=== PATIENT | female | born 1980 | race Caucasian/White ===

== ENCOUNTER 2019-12-22 05:29 | Emergency (ER) | payer MEDICAID, SELFPAY ==
[2019-12-22 05:44] VITALS: BP 155/96; PULSE 112; RESP 16; TEMP 36.5; O2SAT 96; BMI 26.4
--- NOTE | 2019-12-22 05:52 | XR_ITS ---
WS: [id number] Right foot, 3 views, 12/22/2019 Clinical Data: right foot injury/pain Comparison: None. Findings: No fractures or dislocations are seen. No bone destruction or erosion is noted. The joint spaces and soft tissues are normal. XR/XR foot RT min 3V* [id number] Impression: Negative right foot.
--- NOTE | 2019-12-22 05:52 | XR_ITS ---
WS: [id number] Right ankle, 2 views, 12/22/2019 Clinical Data: right foot injury/pain Comparison: None. Findings: No fractures or dislocations are seen. The ankle mortise is normal. The talus and calcaneus are unrem arkable. No soft tissue swelling over the medial or lateral malleolus is seen. XR/XR ankle RT 2V [id number] Impression: Negative right ankle.
--- NOTE | 2019-12-22 06:36 | ED_ITS ---
HPI - Extremity Problem General: Chief complaint: Extremity Problem,Nontraumatic Stated complaint: right ankle pain Time Seen by Provider: 12/22/19 06:33 History of Present Illness: HPI Narrative: 39-year-old female complains of right ankle pain. She states that 2 months ago she twisted the ankle and is been uncomfortable since then she has been ambulating on it. She feels like it has gotten worse. She feels like she cannot work a full shift at her job at a [employer] and shifts her 10 hours usually. She has not seen anyone for it prior to this morning. MD Complaint: extremity pain and extremity swelling Onset (ago): month(s) (2) Pain Consistency: constant Location: right Associated symptoms: Deny chest pain, fever(s) or rash Review of Systems Const: Denies: fever, chills, body aches, change in appetite, fatigue or malaise ENMT: Denies: throat pain, ear pain, nasal discharge or nasal congestion Card: Denies: chest pain, edema, shortness of breath on exertion or shortness of breath when lying down Resp: Denies: shortness of breath, productive cough or non-productive cough GI: Denies: abdominal pain, nausea, vomiting, vomiting blood, coffee grounds in vomit, diarrhea, constipation, bloating, blood in stool or black tarry stool : Denies: flank pain, difficulty urinating, painful urination, urinary frequency or urinary urgency Skin/Breast: Denies: rash or itching PFSH ED PFSH: Social History Smoking and tobacco status: current every day smoker Physical Exam Const: COMMON NORMALS: no apparent distress GENERAL APPEARANCE: cooperative and comfortable ORIENTATION/CONSCIOUSNESS: Yes awake, Yes oriented to person, Yes oriented to place and Yes oriented to time Neck/C-Spine: COMMON NORMALS: full ROM, no lymphadenopathy, supple and no JVD Lymph: LYMPHATIC: no lymphadenopathy noted and no lymphedema noted Resp: COMMON NORMALS: normal respiratory effort, no retractions, no use of accessory muscles and clear to auscultation bilaterally AUSCULTATION: clear to auscultation bilaterally Cardio: COMMON NORMALS: no JVD, regular rate, regular rhythm and no murmurs RATE: regular rate RHYTHM: regular rhythm Extremity: COMMON NORMALS: normal to inspection, normal capillary refill, no clubbing, cyanosis or edema, no calf tenderness and no pedal edema Neuro: SENSORIUM/ORIENTATION: Yes oriented to person, Yes oriented to place and Yes oriented to time Skin: COMMON NORMALS: no rashes or lesions noted GENERAL SKIN EXAM: no rashes or lesions noted Course ED course: X-ray unremarkable. We will go ahead and discharge home follow-up with podiatry if not improving Vital Signs: Vital signs: Vital Signs Temperature 97.7 F 12/22/19 05:44 Pulse Rate 112 H 12/22/19 05:44 Respiratory Rate 16 12/22/19 05:44 Blood Pressure 155/96 12/22/19 05:44 Pulse Oximetry 96 12/22/19 05:44 Discharge Plan Discharge Patient Disposition: Home, Self-Care Clinical Impression: Chronic pain of right ankle Condition: Stable Prescriptions: New diclofenac sodium 75 mg tablet,delayed release (DR/EC) 75 mg PO Q12H PRN (Reason: pain) Qty: 30 RF: 0 Discharge Orders: Discharge Order (Routine); Ordered 12/22/19 Ordered By: Gurdeep Hernandez Referrals: Hank Mcclendon DPM [Physician] - (R Ankle pain, 2 month old injury) Discharge Diet: Usual diet Discharge Activity: Increase activity as tolerated Activity Restrictions/Additional Instructions: Case management will call with referral to podiatry Stand Alone Forms: Work/School Release Discharge Date/Time: 12/22/19 06:55 Coding Level of Care Code ED Director Of Assisted Living for Gallo Humphrey
--- NOTE | 2019-12-22 11:11 | DCPLANNER ---
manager actuarial had message to schedule a follow up appointment for patient with podiatry. manager actuarial called the ortho clinic, spoke with Glenys. manager actuarial gave clinic patients information, was told that patients information would be printed and reviewed. Clinic will call case therapist and patient with appointment information.
--- NOTE | 2019-12-27 13:23 | DCPLANNER ---
Patient has a follow up appointment scheduled for December at 11:[address] Grace. Clinic will call patient with appointment information.
--- NOTE | 2020-01-05 09:51 | DCPLANNER ---
Patient did not attend appointment scheduled for 12.29.19 with ortho.
== END 2019-12-22 06:55 | disposition home or self-care (01) ==
PROVIDERS: Emergency Provider Family Medicine
DX: M25.571 Pain in right ankle and joints of right foot (principal); G89.29 Other chronic pain; F17.200 Nicotine dependence, unspecified, uncomplicated
CPT/HCPCS: 73600; 73630; 99281; 99283

== ENCOUNTER → 2020-09-18 14:50 | Outpatient (BNVA) | payer MEDICAID, SELFPAY | PROVIDERS: Visit Provider Nurse Practitioner Family | DX: R10.9 Unspecified abdominal pain (principal); G89.29 Other chronic pain; N30.00 Acute cystitis without hematuria | CPT/HCPCS: 81000 ==

== ENCOUNTER → 2025-07-18 10:34 | Outpatient (BNVA) | payer BC, MEDICAID, SELFPAY | DX: R39.9 Unspecified symptoms and signs involving the genitourinary system (principal); R30.0 Dysuria | CPT/HCPCS: 81000; 87086 ==

== ENCOUNTER 2025-08-11 13:21 | Emergency (ER) | payer BC, MEDICAID, SELFPAY ==
[2025-08-11 13:31] VITALS: BP 139/81; PULSE 90; RESP 18; TEMP 36.7; O2SAT 100; BMI 24.9
--- OUTSIDE RECORDS SUMMARY | 2025-08-11 13:36 | XMS_ITS | Encounter Summary ---
Author Organization [facility] Address [address] [place] [address] Care Team Providers Care Travel Rn Name Role Phone Unavailable Primary Care Provider Unavailabl e Encounter Details Date Type Department Care Team (Latest Contact Info) Description 10/06/2002 Outpatient Historical [facility] Family Medicine [address] [place] [phone] Danielle Sun MD NO ADDRESS ON FILE FLU W RESP MANIFEST NEC (Primary Dx) Social History Tobacco Use Types Packs/Day Years Used Date Smoking Tobacco: Never Assessed Comments Unknown Sex and Gender Information Value Date Recorded Sex Assigned at Not on file 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
--- OUTSIDE RECORDS SUMMARY | 2025-08-11 13:36 | XMS_ITS | Patient Health Record ---
Author Organization [facility] Address [address] [place] [address] Care Team Providers Care Scrapper Name Role Phone Parrish Vazquez Unavailable [phone] Reason For Referral No Information Social History Social History Additional Details Category Social Info Options Details zzMigrated Social History Migrated Social History Advance Directive: Current and Verified Signed on 06/07/2012, withhold IV and tube nutrition, withhold surgery, withhold antibiotics, withhold mechanical ventilator, withhold radiation therapy, withhold dialysis, withhold chemotherapy, withhold CPR Other All other Life Prolonging ... 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 Marital Status: Single Children: 6 Problems Problem Type SNOMED Code ICD Code Onset Dates Problem Status W/U Status Risk Notes Problem Wheezing (68310835) Wheezing (786.07) 08/31/20 08 Problem resolved confirmed [id number]- Problem Rash (391218431) Rash (782.1) 06/07/20 12 Problem resolved confirmed [id number]- Problem Low back pain (348168124) Low back pain (724.2) 12/09/19 11 Active confirmed [id number]- Problem Moderate recurrent major depression (23734776) Major depression, recurrent episode, moderate (296.32) 10/23/20 10 Active confirmed [id number]- Problem Shoulder pain (42920052) Shoulder pain (719.41) 09/30/20 10 Problem resolved confirmed [id number]- Problem Tobacco dependence (18021204) Tobacco dependence (305.1) 05/17/20 19 Problem resolved confirmed [id number]- Problem Foot pain (56864983) Foot pain (729.5) 11/18/19 11 Problem resolved confirmed [id number]- Problem Breast pain (85500385) Breast pain (611.71) 11/30/19 09 Problem resolved confirmed [id number]- Problem Stress (959193919) Stress (300.02) 01/26/20 09 Problem resolved confirmed [id number]- Problem Chronic hepatitis C (699066930) Chronic hepatitis C (070.54) 09/29/20 08 Active confirmed [id number]- Problem Constipation (60149446) Constipation (564.01) 07/17/20 10 Problem resolved confirmed [id number]- Problem Knee pain (8609045137) Knee pain (719.46) 12/29/19 09 Problem resolved confirmed [id number] 11- Problem COPD - Chronic obstructive pulmonary disease (84470233) COPD (496) 07/17/20 10 Active confirmed [id number]- Problem Menstrual disorder (758701598) Disorder of menstruation and other abnormal uterine bleeding (626.8) 08/07/20 10 Problem resolved confirmed [id number]- Problem Screening mammography (07734289) Screening mammogram - other (V76.12) 05/17/20 19 Problem resolved confirmed [id number] 11- Plan Of Treatment No Information Insurance Providers Payer Name Payer Address Payer Phone Subscriber Number Group Number Insured Name Patient Relationship to Insured Coverage Start Date Coverage End Date [facility] [address] [address] [place] [address] [id number] Arue Soto Self - patient is the insured 9 Medical (General) History Surgical History Surgery Date(Month/Year) NONE
--- OUTSIDE RECORDS SUMMARY | 2025-08-11 13:36 | XMS_ITS | Encounter Summary ---
Author Organization [facility] Address [address] [place] [address] Care Team Providers Care Retort Furnace Helper Name Role Phone Unavailable Primary Care Provider Unavailabl e Encounter Details Date Type Department Care Team (Latest Contact Info) Description 02/07/2000 Outpatient Historical [facility] Family Medicine [place] [address] [facility] [address] [place] [address] Jassi Gonzales MD [address] [address] Myalgia and myositis, unspecified (Primary Dx); Hip, thigh, leg, and ankle, abrasion or friction burn, without mention of infection; Need for prophylactic vaccination with tetanus-diphtheria (Td) Social History Tobacco Use Types Packs/Day Years Used Date Smoking Tobacco: Never Assessed Comments Unknown Sex and Gender Information Value Date Recorded Sex Assigned at Not on file 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
--- OUTSIDE RECORDS SUMMARY | 2025-08-11 13:36 | XMS_ITS | Encounter Summary ---
Author Organization [facility] Address [address] [place] [address] Care Team Providers Care Recruiting Intern Name Role Phone Unavailable Primary Care Provider Unavailabl e Encounter Details Date Type Department Care Team (Latest Contact Info) Description 01/25/2005 Outpatient Historical [facility] [address] [place] [address] AMBULANCE, [facility] HEADACHE (Primary Dx) Social History Tobacco Use Types Packs/Day Years Used Date Smoking Tobacco: Never Assessed Comments Unknown Sex and Gender Information Value Date Recorded Sex Assigned at Not on file 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
--- OUTSIDE RECORDS SUMMARY | 2025-08-11 13:36 | XMS_ITS | Encounter Summary ---
Author Organization [facility] Address [address] 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
--- OUTSIDE RECORDS SUMMARY | 2025-08-11 13:36 | XMS_ITS | Encounter Summary ---
Author Organization [facility] Address [address] [place] [address] Care Team Providers Care Sales Mgr Name Role Phone Unavailable Primary Care Provider Unavailabl e Encounter Details Date Type Department Care Team (Latest Contact Info) Description 08/13/1999 Outpatient Historical [facility] Family Medicine [address] [address] Kiko Hastings, DO NO ADDRESS ON FILE Acute bronchitis (Primary Dx); Acute pharyngitis Social History Tobacco Use Types Packs/Day Years Used Date Smoking Tobacco: Never Assessed Comments Unknown Sex and Gender Information Value Date Recorded Sex Assigned at Not on file 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
--- OUTSIDE RECORDS SUMMARY | 2025-08-11 13:36 | XMS_ITS | Encounter Summary ---
Author Organization [facility] Address [address] [place] [address] Care Team Providers Care Volunteer Services Supervisor Name Role Phone Unavailable Primary Care Provider Unavailabl e Encounter Details Date Type Department Care Team (Latest Contact Info) Description 12/04/2006 Outpatient [facility] Medicine [address] [place] [phone] Juana Vazquez NP NO ADDRESS ON FILE Acute Hepatitis C without Mention of Hepatic Coma (Primary Dx); Acute Sinusitis, Unspecified Social History Tobacco Use Types Packs/Day Years Used Date Smoking Tobacco: Never Assessed Comments Unknown Sex and Gender Information Value Date Recorded Sex Assigned at Not on file 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
--- OUTSIDE RECORDS SUMMARY | 2025-08-11 13:36 | XMS_ITS | Encounter Summary ---
Author Organization [facility] Address [address] You: Epic Prelude ADT BHANU SAMSON [address] Care Team Providers Care Zigzag Machine Operator Name Role Phone Unavailable Primary Care Provider Unavailabl e Encounter Details Date Type Department Care Team (Late st Contact Info) Description 10/26/1999 Outpatient Historical Ed, Physician NO ADDRESS ON FILE Social History Tobacco Use Types Packs/Day Years Used Date Smoking Tobacco: Never Assessed Comments Unknown Sex and Gender Information Value Date Recorded Sex Assigned at Not on file Legal Sex Female 4:34 AM CONTACT MANAGER Gender Identity Not on file Sexual Orientation Not on file documented as of this encounter Plan of Treatment Not on file documented as of this encounter Visit Diagnoses Not on filedocumented in this encounter
--- OUTSIDE RECORDS SUMMARY | 2025-08-11 13:36 | XMS_ITS | Encounter Summary ---
Author Organization [facility] Address [address] [place] [address] Care Team Providers Care Environmental Auditor Name Role Phone Unavailable Primary Care Provider Unavailabl e Reason for Visit * Reason Onset Date Comments Pt Natan 12/22/2024 Encounter Details Date Type Department Care Team (Late st Contact Info) Description 12/22/2024 Telephone [facility] Gen Spec Surg [place] [facility] 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 Please call her back to update her with a plan. GRAPHICAL ENGINEER documented in this encounter Plan of Treatment Not on file documented as of this encounter Visit Diagnoses Not on filedocumented in this encounter
--- OUTSIDE RECORDS SUMMARY | 2025-08-11 13:36 | XMS_ITS | Encounter Summary ---
Author Organization [facility] Address [address] [place] [address] Care Team Providers Care Perinatal Breastfeeding Assistant Name Role Phone Unavailable Primary Care Provider Unavailabl e Encounter Details Date Type Department Care Team (Latest Contact Info) Description 09/01/2002 Outpatient Historical 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
--- OUTSIDE RECORDS SUMMARY | 2025-08-11 13:36 | XMS_ITS | Encounter Summary ---
Author Organization [facility] Address [address] 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 Gender Identity Not on file Sexual Orientation Not on file documented as of this encounter Plan of Treatment Not on file documented as of this encounter Procedures Procedure Name Priority Date/Time Associated Diagnosis Comments ACUTE HEPATITIS PANEL Routine 11/13/2006 12:14 PM STIFF STRAW HAT WASHER documented in this encounter Results * (ABNORMAL) ACUTE HEPATITIS PANEL (11/13/2006 12:14 PM STIFF STRAW HAT WASHER) HEPATITIS B SURFACE AG Negative Negative INTERFACE SYSTEM HEPATITIS B CORE IGM Negative Negative INTERFACE SYSTEM HEPATITIS A IGM Negative Negative INTE RFACE SYSTEM HEPATITIS C AB High Positive(A) Negative INTERFACE SYSTEM Comment: HCV antibody testing is performed by E.I.A. methodology. CDC recommends positive HCV antibody tests have confirmation testing. Low positive results should be confirmed with RIBA. This will determine if results are false positive. If a high positive result is obtained an HCV RNA may be run. The RNA test confirms infection and the level of the RNA, to some extent, helps guide treatment. The same specimen can be used for RIBA and will be held for 7 days. Please contact the Immunology lab if RIBA testing is desired. However, if HCV RNA testing is desired, a new specimen must be collected. Blood should be collected in SST (serum) or EDTA (plasma) separation tubes. Separate serum or plasma from whole blood within 6 hours of collection. Serum or plasma can be transported at refrigerated temperature or frozen and transported. 11/13/2006 12:1 4 PM STIFF STRAW HAT WASHER us Physician Non-Staff CHEMISTRY ORDERABLES Edited INTERFACE SYSTEM Refer to clinic/hospital department documented in this encounter Visit Diagnoses Not on filedocumented in this encounter
--- OUTSIDE RECORDS SUMMARY | 2025-08-11 13:36 | XMS_ITS | Encounter Summary ---
Author Organization [facility] Address [address] [place] [address] Care Team Providers Care Roofing Foreman Name Role Phone Unavailable Primary Care Provider Unavailabl e Encounter Details Date Type Department Care Team (Latest Contact Info) Description 11/20/2006 Outpatient [facility] Medicine [address] [place] [phone] Juana Vazquez NP NO ADDRESS ON FILE Acute Hepatitis C without Mention of Hepatic Coma (Primary Dx); Supervision of Other High-Risk Social History Tobacco Use Types Packs/Day Years Used Date Smoking Tobacco: Never Assessed Comments Unknown Sex and Gender Information Value Date Recorded Sex Assigned at Not on file 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
--- OUTSIDE RECORDS SUMMARY | 2025-08-11 13:36 | XMS_ITS | Clinical Summary ---
Author Organization [facility] Address [address] You: Epic Prelude ADT BHANU SAMSON [address] Care Team Providers Care Director Of [employer]ance [employer] Name Role Phone Unavailable Primary Care Provider Unavailabl e Allergies No known active allergies Medications acetaminophen (TYLENOL) 500 mg tablet Take 1,000 mg by mouth every 6 hours as needed for Pain. 09/05/2020 Active gabapentin (NEURONTIN) 600 mg tablet Take 600 mg by mouth 3 times daily. Active Active Problems No known active problems Encounters Date Type Department Care Team Description 08/01/2025 External Device Data [facility] ABSTRACTION Provider, Abstract 08/01/2025 External Device Data [facility] ABSTRACTION Provider, Abstract 06/28/2025 External Device Data [facility] ABSTRACTION Provider, Abstract 06/27/2025 External Device Data [facility] ABSTRACTION Provider, Abstract 06/20/2025 External Device Data [facility] ABSTRACTION Provider, Abstract 06/20/2025 External Device Data [facility] ABSTRACTION Provider, Abstract 06/14/2025 External Device Data [facility] ABSTRACTION Provider, Abstract 05/16/2025 External Device Data [facility] ABSTRACTION Provider, Abstract from Last 3 Months Immunizations Immunization Administration Dates Next Due (ADACEL/BOOSTRIX)(10 YR UP) TDAP VACCINE, 0.5ML, IM 02/16/2025 (TDVAX)(7 YRS UP) TETANUS AN D DIPHTHERIA TOXOIDS, ADSORBED (2 LF OF TETANUS TOXOID AND 2 LF OF DIPHTHERIA TOXOID), 0.5ML (PF), IM 02/07/2000 Social History Tobacco Use Types Packs/Day Years Used Date Smoking Tobacco: Every Day Cigarettes Smokeless Tobacco: Never Tobacco Cessation:Ready to Q uit: Not Asked; Counseling Given: No Alcohol Use Standard Drinks/Week Comments Yes 0 (1 standard drink = 0.6 oz pur e alcohol) Feeling Safe Answer Date Recorded Are you in a relationship wi th someone who hurts you emotionally and/or physically? No 02/16/2025 Comments Unknown Sex and Gender Information Value Date Recorded Sex Assigned at Not on file Legal Sex Female 5:02 PM EDUCATION COUNSELOR Gender Identity Not on file Sexual Orientation Not on file Last Filed Vital Signs Vital Sign Reading Time Taken Comments Blood Pressure 108/75 02/16/2025 12:43 PM CDT Pulse 61 12/19/2024 1:31 PM EDUCATION COUNSELOR Temperature 37.1 C (98.7 F) 02/16/2025 12:43 PM CDT Respiratory Rate 18 02/16/2025 12:43 PM CDT Oxygen Saturation 98% 02/16/2025 12:43 PM CDT Inhaled Oxygen Concentration - - Weight 68.9 kg (152 lb) 02/16/2025 12:43 PM CDT Height 154.9 cm (5' 1 ) 02/16/2025 12:43 PM CDT Body Mass Index 28.72 02/16/2025 12:43 PM CDT Plan of Treatment Health Maintenance Due Date Last Done Comments Pre-Diabetes and Diabetes Screening 1979 HEPATITIS B VACCINES (1 of 3 - 19+ 3-dose series) 1998 HPV/Cotest (21-29) 01/05/2000 CERVICAL CANCER SCREENING 2009 HPV/Cotest (30-65) 2009 PAP SMEAR 2009 BREAST CANCER SCREENING 2019 01/02/2014 COLORECTAL SCREENING 01/05/2024 Colorectal Cancer Screening 01/05/2024 FIT-DNA Q 3 years 01/05/2024 FIT/FOBT Q 1 year 01/05/2024 Flex Sig/CT Colonography Q 5 years 01/05/2024 INFLUENZA VACCINE (#1) 2025 DTAP/TDAP/TD VACCINES (2 - T d or Tdap) 02/16/2035 02/16/2025, 02/07/2000 HPV VACCINES Aged Out No longer eligi ble based on patient's age to complete this topic Insurance [employer] [place] MEDICAID
--- OUTSIDE RECORDS SUMMARY | 2025-08-11 13:36 | XMS_ITS | Encounter Summary ---
Author Organization [facility] Address [address] [place] [address] Care Team Providers Care Work Force Advisor Name Role Phone Unavailable Primary Care Provider Unavailabl e Encounter Details Date Type Department Care Team (Latest Contact Info) Description 11/27/2006 Outpatient [facility] [address] [place] [phone] Juana Vazquez NP NO ADDRESS ON FILE Acute Hepatitis C without Mention of Hepatic Coma (Primary Dx); Examination or Test, Positive Result Social History Tobacco Use Types Packs/Day Years Used Date Smoking Tobacco: Never Assessed Comments Unknown Sex and Gender Information Value Date Recorded Sex Assigned at Not on file Legal Sex Female 4:34 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
--- OUTSIDE RECORDS SUMMARY | 2025-08-11 13:36 | XMS_ITS | Encounter Summary ---
Author Organization [facility] Address [address] [place] [address] Care Team Providers Care Odd Jobs Day Worker Name Role Phone Unavailable Primary Care Provider Unavailabl e Encounter Details Date Type Department Care Team (Latest Contact Info) Description 11/08/2002 Outpatient Historical [facility] Family Medicine [address] [phone] Kiko Hastings, NO ADDRESS ON FILE ABDOMINAL PAIN UNSPEC SITE (Primary Dx) Social History Tobacco Use Types Packs/Day Years Used Date Smoking Tobacco: Never Assessed Comments Unknown Sex and Gender Information Value Date Recorded Sex Assigned at Not on file Legal Sex Female 4:34 AM GREENSKEEPER Gender Identity Not on file Sexual Orientation Not on file documented as of this encounter Plan of Treatment Not on file documented as of this encounter Visit Diagnoses Diagnosis Abdominal pain, unspecified site- Primary documented in this encounter
--- OUTSIDE RECORDS SUMMARY | 2025-08-11 13:36 | XMS_ITS | Encounter Summary ---
Author Organization [facility] Address [address] [place] [address] Care Team Providers Care Operational Assistant Name Role Phone Unavailable Primary Care Provider Unavailabl e Encounter Details Date Type Department Care Team (Latest Contact Info) Description 01/25/2001 Outpatient Historical [facility] Family Medicine- [place] [address] [place] [address] Jassi Gonzales MD [address] [phone] Unspecified otitis media (Primary Dx); Impacted cerumen; Infective otitis externa, unspecified Social History Tobacco Use Types Packs/Day Years Used Date Smoking Tobacco: Never Assessed Comments Unknown Sex and Gender Information Value Date Recorded Sex Assigned at Not on file 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
--- OUTSIDE RECORDS SUMMARY | 2025-08-11 13:36 | XMS_ITS | Encounter Summary ---
Author Organization [facility] Address [address] [place] [address] Care Team Providers Care Edge Cutting Machine Operator Name Role Phone Unavailable Primary Care Provider Unavailabl e Encounter Details Date Type Department Care Team (Late st Contact Info) Description 12/07/2003 Emergency [facility] Emergency Department [address] [place] [address] Ed, Physician NO ADDRESS ON FILE DRUG WITHDRAWAL SYNDROME (CMS/HCC) (Primary Dx) Social History Tobacco Use Types Packs/Day Years Used Date Smoking Tobacco: Never Assessed Comments Unknown Sex and Gender Information Value Date Recorded Sex Assigned at Not on file Legal Sex Female 4:34 AM ACTUARIAL TECHNICIAN Gender Identity Not on file Sexual Orientation Not on file documented as of this encounter Plan of Treatment Not on file documented as of this encounter Visit Diagnoses Diagnosis Drug withdrawal (CMS/HCC)- Primary Drug withdrawal documented in this encounter
--- OUTSIDE RECORDS SUMMARY | 2025-08-11 13:36 | XMS_ITS | Encounter Summary ---
Author Organization [facility] Address [address] You: Epic Prelude ADT BHANU SAMSON [address] Care Team Providers Care Independent Beauty Consultant Name Role Phone Unavailable Primary Care Provider Unavailabl e Encounter Details Date Type Department Care Team (Late st Contact Info) Description 11/20/2006 Outpatient Historical Non-Staff, Physician NO ADDRESS ON FILE Social History Tobacco Use Types Packs/Day Years Used Date Smoking Tobacco: Never Assessed Comments Unknown Sex and Gender Information Value Date Recorded Sex Assigned at Not on file Legal Sex Female 4:34 AM [employer] Gender Identity Not on file Sexual Orientation Not on file documented as of this encounter Plan of Treatment Not on file documented as of this encounter Procedures Procedure Name Priority Date/Time Associated Diagnosis Comments HEPATITIS C RNA PCR, QUANTITATIVE Routine 11/20/2006 12:56 PM [employer] HEPATITIS C AB CONFIRMATION BY RIBA Routine 11/20/2006 12:56 PM [employer] documented in this encounter Results * HEPATITIS C AB CONFIRMATION BY RIBA (11/20/2006 12:56 PM [employer]) HEPATITIS C AB CONFIRMATION BY RIBA See Sep Report INTERFACE SYSTEM 11/20/2006 12:5 6 PM [employer] us Physician Non-Staff CHEMISTRY ORDERABLES Edited INTERFACE SYSTEM Refer to clinic/hospital department * HEPATITIS C RNA PCR, QUANTITATIVE (11/20/2006 12:56 PM [employer]) HEPATITIS C RNA PCR, QUANT See Sep Report INTERFACE SYSTEM 11/20/2006 12:5 6 PM [employer] us Physician Non-Staff CHEMISTRY ORDERABLES Edited INTERFACE SYSTEM Refer to clinic/hospital department documented in this encounter Visit Diagnoses Not on filedocumented in this encounter
--- OUTSIDE RECORDS SUMMARY | 2025-08-11 13:36 | XMS_ITS | Patient Health Record ---
Author Organization [facility] Address [address] [place] [address] Care Team Providers Care Abnormal Psychology Teacher Name Role Phone JamieRola shepard Primary Care Provider Allergies No Known Allergies Reason For Referral No Information Social History Tobacco Use: Social History Observation Description Date Details (start date - stop date) Current Smoker NA - NA Tobacco Use/Smoking Question Answer Notes Are you a: current every day smoker Problems Problem Type SNOMED Code ICD Code Onset Dates Problem Status W/U Status Risk Notes Problem Abdominal pain (32125397) ABDOMINAL PAIN (R10.9) Active confirmed Plan Of Treatment Future Test Test Name Order Date CT ABD PELVIS WITH IV CONTRAST - [id number] 0 11/23/2020 Insurance Providers Payer Name Payer Address Payer Phone Subscriber Number Group Number Insured Name Patient Relationship to Insured Coverage Start Date Coverage End Date [employer] [facility] [address] [address] [place] [phone] [id number] MAYRA REVELES Self - patient is the insured Medical (General) History Medical History History ICD Code Depression History of Hepatitis Anxiety History of Pneumonia Arthritis Surgical History Surgery Date(Month/Year) Gallbladder removal 2009 Hernia mesh implant 2011
--- OUTSIDE RECORDS SUMMARY | 2025-08-11 13:36 | XMS_ITS | Encounter Summary ---
Author Organization [facility] Address [address] [place] [address] Care Team Providers Care Machine Operator Hay Stacker Name Role Phone Unavailable Primary Care Provider Unavailabl e Encounter Details Date Type Department Care Team (Latest Contact Info) Description 04/12/2005 Outpatient Historical [facility] [address] [place] [address] AMBULANCE, [facility] VIEW MULTIPLE CONTUSION LEG (Primary Dx) Social History Tobacco Use Types Packs/Day Years Used Date Smoking Tobacco: Never Assessed Comments Unknown Sex and Gender Information Value Date Recorded Sex Assigned at Not on file Legal Sex Female 4:34 AM EXPANDER Gender Identity Not on file Sexual Orientation Not on file documented as of this encounter Plan of Treatment Not on file documented as of this encounter Visit Diagnoses Diagnosis Contusion of multiple sites of lower limb- Primary documented in this encounter
--- OUTSIDE RECORDS SUMMARY | 2025-08-11 13:36 | XMS_ITS | Encounter Summary ---
Author Organization [facility] Address [address] [place] [address] Care Team Providers Care Auto Care Center Manager Name Role Phone Unavailable Primary Care Provider Unavailabl e Encounter Details Date Type Department Care Team (Latest Contact Info) Description 11/13/2006 Outpatient [facility] Family Medicine [address] [place] [address] Juana Vazquez NP NO ADDRESS ON FILE Acute Bronchitis (Primary Dx); Lumbago; Hx-Expos Hzrd Body Fluid; Examination or Test, Positive Result Social History Tobacco Use Types Packs/Day Years Used Date Smoking Tobacco: Never Assessed Comments Unknown Sex and Gender Information Value Date Recorded Sex Assigned at Not on file Legal Sex Female 4:34 AM BEEF PUSHER Gender Identity Not on file Sexual Orientation Not on file documented as of this encounter Plan of Treatment Not on file documented as of this encounter Visit Diagnoses Diagnosis Acute bronchitis- Primary Lumbago Personal history of contact with and (suspected) exposure to potentially hazardous body fluids examination or test, positive result documented in this encounter
--- OUTSIDE RECORDS SUMMARY | 2025-08-11 13:36 | XMS_ITS | Encounter Summary ---
Author Organization [facility] Address [address] [place] [address] Care Team Providers Care Managed Security Sales Consultant Name Role Phone Unavailable Primary Care Provider Unavailabl e Encounter Details Date Type Department Care Team (Late st Contact Info) Description 01/27/2005 Outpatient Historical [facility] Rico Reyes, [address] [address] Social History Tobacco Use Types Packs/Day Years Used Date Smoking Tobacco: Never Assessed Comments Unknown Sex and Gender Information Value Date Recorded Sex Assigned at Not on file Legal Sex Female 4:34 AM EDI COORDINATOR Gender Identity Not on file Sexual Orientation Not on file documented as of this encounter Plan of Treatment Not on file documented as of this encounter Visit Diagnoses Not on filedocumented in this encounter
--- OUTSIDE RECORDS SUMMARY | 2025-08-11 13:36 | XMS_ITS | Clinical Summary ---
Author Organization [facility] Address [address] [place] [address] Phone Care Team Providers Care Automatic Presser Name Role Phone Unavailable Primary Care Provider Unavailabl e Allergies No known active allergies Medications acetaminophen (TYLENOL) 500 mg tablet Take 1,000 mg by mouth every 6 hours as needed for Pain. Active Immunizations Immunization Administration Dates Next Due (TDVAX)(7 YRS UP) TETANUS AN D DIPHTHERIA TOXOIDS, ADSORBED (2 LF OF TETANUS TOXOID AND 2 LF OF DIPHTHERIA TOXOID), 0.5ML (PF), IM 02/07/2000 Social History Tobacco Use Types Packs/Day Years Used Date Smoking Tobacco: Every Day Cigarettes Smokeless Tobacco: Never Alcohol Use Standard Drinks/Week Comments Yes 0 (1 standard drink = 0.6 oz pur e alcohol) Comments No Sex and Gender Information Value Date Recorded Sex Assigned at Not on file Legal Sex Female 4:34 AM NP Gender Identity Not on file Sexual Orientation Not on file Last Filed Vital Signs Vital Sign Reading Time Taken Comments Blood Pressure 100/47 09/05/2020 5:45 PM NP Pulse 98 09/05/2020 6:00 PM NP Temperature 36.7 C (98.1 F) 09/05/2020 6:00 PM NP Respiratory Rate 16 09/05/2020 6:00 PM NP Oxygen Saturation 98% 09/05/2020 6:00 PM NP Inhaled Oxygen Concentration - - Weight 71.7 kg (158 lb) 09/05/2020 2:17 PM NP Height 154.9 cm (5' 1 ) 09/05/2020 2:17 PM NP Body Mass Index 29.85 09/05/2020 2:17 PM NP Plan of Treatment Health Maintenance Due Date Last Done Comments HEPATITIS B VACCINES (1 of 3 - 19+ 3-dose series) 1998 HPV/Cotest (21-29) 01/05/2000 DTAP/TDAP/TD VACCINES (1 - Tdap) 02/08/2000 02/07/20 00 CERVICAL CANCER SCREENING 2009 HPV/Cotest (30-65) 2009 PAP SMEAR 2009 BREAST CANCER SCREENING 2019 COLORECTAL SCREENING 01/05/2024 Colorectal Cancer Screening 01/05/2024 FIT-DNA Q 3 years 01/05/2024 FIT/FOBT Q 1 year 01/05/2024 Flex Sig/CT Colonography Q 5 years 01/05/2024 INFLUENZA VACCINE (#1) 2025 HPV VACCINES Aged Out No longer eligi ble based on patient's age to complete this topic Insurance [facility] MEDICAID
[2025-08-11 13:43] LABS: Hematocrit 39.7 % (36-47); Hemoglobin 13.20 g/dL (11.27-16.99); Mean Corpuscular HGB Conc 33.2 g/dL (30-55); Mean Corpuscular Hemoglobin 30.4 pg (27-33); Mean Corpuscular Volume 91.5 fl (85-98); Nucleated Red Blood Cells % 0 %; Platelet Count 267 10^3/cmm (157-399); Red Blood Count 4.34 10^6/uL (3.85-5.65); White Blood Count 6.12 10^3/uL (3.29-11.43)
[2025-08-11 13:49] LABS: HCG, Serum Qual Negative (Negative)
[2025-08-11 13:54] LABS: Alanine Aminotransferase 10 U/L (0-33); Albumin Level 4.0 g/dL (3.5-5.2); Alkaline Phosphatase 66 U/L (35-105); Anion Gap 14.9 (5-19); Aspartate Amino Transferase 17 U/L (0-32); Blood Urea Nitrogen 8 mg/dL (6-20); Calcium 8.5 mg/dL (8.5-10.5); Carbon Dioxide 25 mmol/L (22-29); Chloride 102 mmol/L (98-107); Creatinine Clr Calc Pharmacy 97.3404; Globulin 2.5 g/dL (1.3-4.6); Glucose 104 mg/dL (65-115); Lipase 14 U/L (13-60); Osmolality Calculated 285 mOsm/kg (285-295); Potassium 3.9 mmol/L (3.5-5.1); Sodium 138 mmol/L (136-145); Total Protein 6.5 g/dL (6.6-8.7)
--- NOTE | 2025-08-11 13:55 | CT_ITS ---
WS: [id number] CT ABDOMEN AND PELVIS NONCONTRAST HISTORY: L abdominal/flank pain TECHNIQUE: Imaging performed through the abdomen and pelvis. Coronal and sagittal reformats are submitted. All CT scans at [facility] use at least one of these dose optimization techniques: automated exposure control; mA and/or kV adjustment per patient size (includes targeted exams where dose is matched to clinical indication); or iterative reconstruction. DLP: 353.63 mGy.cm COMPARISON: None available. Lower thorax: Lung bases are clear. Visualized heart is normal. No hiatal hernia. Liver: Normal size liver. No mass or bile duct dilatation. Gallbladder: Surgically removed. Common bile duct is top normal size at 7 mm which is appropriate post cholecystectomy. Pancreas: Normal size and attenuation. Normal pancreatic duct. No pancreatitis or mass. Spleen: Normal. Adrenal glands: Normal. No mass. Right kidney: Normal size kidney with no mass or hydronephrosis. Cortical scar lateral upper pole. Cortical hypodensity measuring 8 mm in the upper pole. No obstruction. Left kidney: Normal size kidney with no mass or hydronephrosis. Aorta: Normal abdominal aorta, no aneurysm or atherosclerosis. No free fluid, intraperitoneal air or significant lymphadenopathy. GI tract: Normal noncontrast imaging of the stomach, small bowel and colon. No obstruction or wall thickening. Normal appendix. Abdominal wall: Negative. No hernia. Pelvis: Uterus is enlarged and anteverted. There is a small amount of free fluid in the cul-de-sac. Physiologic amount of free fluid. Urinary bladder is minimally distended. There is air in the urinary bladder. Osseous structures: Sclerotic foci in the cristofer. Increased sclerosis along the RIGHT SI joint. Greater amount of sclerosis in the iliac portion of the SI joint. Well-corticated lucent line through the RIGHT sacrum may be from an old injury. No acute fractures are identified. No bone destruction. CT/CT kidney stone [id number] IMPRESSION: 1. Air in the urinary bladder. May be from recent instrumentation. If there wa s no recent urinary bladder catheterization consider gas producing bacteria and less likely fistula. 2. Small amount of free fluid in the pelvis. Physiologic in amount. 3. Enlarged uterus. Recommend nonurgent evaluation of the uterus and adnexa. 4. Normal appendix. 5. No GI tract obstruction. 6. Prior cholecystectomy. 7. Asymmetric RIGHT sacroiliitis. This can be seen with prior infection, psori atic arthritis or other forms of arthritis. Notified HETAL Mehta at 08/11/2025 2:48 PM.
--- NOTE | 2025-08-11 13:56 | ED_ITS ---
HPI - Abdominal Pain 2 General: Chief Complaint: Abdominal Pain Stated Complaint: left lower back pain Source: patient Mode of arrival: ambulatory Limitations: no limitations History of Present Illness: Patient is a 45-year-old female presents to ED today with a complaint of left- sided abdominal pain and stating I have E. coli . After further clarification, she told me she went to the walk-in clinic a few weeks ago with symptoms of a possible kidney stone. They collected UA and sent home with instructions for conservative therapy. They later called her and told her that her UA grew E. coli and placed her on Bactrim. Patient states she has completed this medication. She complains of left-sided abdominal pain but tells me I had a lot of problems with my mesh . Looks like she has complained of chronic abdominal pain ever since 2019 from our documentation. Patient does complain of cloudy and odorous urine. She is not having any vomiting. No fevers. MD elicited complaint: abdominal pain Pertinent past history: other (chronic abdominal pain-at least back in 2019) Onset (ago): day(s) Pain Consistency: constant Location: LUQ, LLQ and L flank Severity: moderate Radiation: none Migration to: no migration Exacerbating factors: nothing Relieving factors: nothing Associated Symptoms: Reports dysuria; Denies change in bowel habits, chills, diarrhea, fever(s), hematuria, nausea and vomiting Related Data Previous Rx's ?Medication ?Instructions ?Recorded omeprazole magnesium 20 mg 20 mg PO BID #60 tabs 09/06 tablet,delayed release (Prilosec OTC) tamsulosin 0.4 mg capsule 0.4 mg PO DAILY 7 days #7 ca ps 07/18/25 sulfamethoxazole 800 1 tab PO BID 5 days #10 tabs 07/21/25 mg-trimethoprim 160 mg tablet (Bactrim DS) ciprofloxacin HCl 500 mg tablet 500 mg PO Q12H #14 tab s 08/11/25 (Cipro) Allergies Allergy/AdvReac Type Severity Reaction Status Date / Time No Known Allergies Allergy Verified 07/18/25 10:27 Review of Systems 2 Const: Denies: fever(s), chills, body aches, fatigue or malaise Card: Denies: chest pain Resp: Denies: dyspnea GI: Reports: abdominal pain (chronic); Denies: nausea, vomiting, diarrhea or change in bowel habits : Reports: dysuria, urinary frequency, urinary urgency and other (cloudy, odorous urine); Denies: difficulty voiding, urinary hesitancy, hematuria or pelvic pain Musc: Denies: neck pain, back pain, extremity pain, extremity swelling, joint pain or joint swelling Skin/Breast: Denies: rash Neuro: Denies: headache(s), numbness in extremities, weakness in extremities, sensory changes or dizziness PFSH ED 2 PFSH: Medical History Endometriosis Surgical History History of hernia repair Family History Mother Stroke Father Cirrhosis Grandmother Cancer ovarian Social History Smoking and tobacco/nicotine status: current every day tobacco/nicotine user Physical Exam 2 Const: COMMON NORMALS: no acute distress, average body habitus, patient oriented x3, no limitations, healthy appearing, alert and well nourished G ENERAL APPEARANCE: cooperative ORIENTATION/CONSCIOUSNESS: Yes awake, Yes oriented to person, Yes oriented to place and Yes oriented to time HENMT: COMMON NORMALS: normocephalic and atraumatic HEAD & SCALP: normal to inspection, normocephalic and atraumatic Neck/C-Spine: COMMON NORMALS: full ROM, no lymphadenopathy, supple and no meningeal signs Chest: COMMONS NORMALS: normal inspection of the chest Resp: COMMON NORMALS: normal respiratory effort and clear to auscultation bilaterally AUSCULTATION: clear to auscultation bilaterally Cardio: COMMON NORMALS: regular rate and regular rhythm RATE: regular rate RHYTHM: regular rhythm GI: COMMON NORMALS: Normal to inspection, nondistended, normoactive bowel sounds present, Soft to palpation, No hepatosplenomegaly present and no masses INSPECTION: Yes normal to inspection AUSCULTATION: Yes normoactive bowel sounds PALPATION: Yes Soft to palpation, Yes Tenderness to palpation present (GI) (L side of abdomen), No Guarding due to palpation present (GI), No Rigid due to palpation and Yes No hepatosplenomegaly present : BLADDER/KIDNEY EXAM: Yes CVA tenderness on the left Back/Pelvis: COMMON NORMALS: thoracic and lumbar spine normal to inspection GENERAL BACK: Yes CVA tenderness Extremity: COMMON NORMALS: normal to inspection GENERAL: Yes normal exam except as noted Neuro: COMMON NORMALS: patient oriented x3, moves all extremities, no focal motor deficits and no sensory deficits noted SENSORIUM/ORIENTATION: Yes alert, Yes oriented to person, Yes oriented to place and Yes oriented to time MENINGEAL SIGNS: Yes no meningeal signs Skin: COMMON NORMALS: no rashes or lesions noted GENERAL SKIN EXAM: no rashes or lesions noted Course 2 Vital Signs: Vital signs: Vital Signs Temperature 98.1 F 08/11/25 13:31 Pulse Rate 87 08/11/25 16:01 Respiratory Rate 18 08/11/25 13:31 Blood Pressure 117/71 08/11/25 16:01 Pulse Oximetry 99 08/11/25 16:01 Oxygen Delivery Me thod Room Air 08/11/25 13:31 MDM - Abdominal Pain Medical Decision Making Patient clinically appears in no acute distress. Her vital signs are normal. She has a normal white count. UA still appears grossly infected with positive nitrates, 3+ leukocyte esterase, 51-100 WBCs. This is a contaminated specimen. CT imaging ordered to rule out obstructive uropathy. Patient's kidney/ureter appear normal without hydronephrosis, stranding, calculus or evidence of obstructive process. She did have air in the urinary bladder-no recent catheterization per patient history. Concern for emphysematous cystitis. Will go ahead and place her on ciprofloxacin-did review recent culture and sensitivity report. Recommend she follow-up with primary care for re- evaluation. Return ED precautions discussed. If she does not improve she may require urology/infectious disease. Medical Records I reviewed the patient's medical records. Lab Data I reviewed the patient's lab results. 08/11/25 12:55 08/11/25 12:55 Labs/Radiology: Radiology Impressions Abdomen/Pelvis CT 08/11/25 13:55 IMPRESSION: 1. Air in the urinary bladder. May be from recent instrumentation. If there was no recent urinary bladder catheterization consider gas producing bacteria and less likely fistula. 2. Small amount of free fluid in the pelvis. Physiologic in amount. 3. Enlarged uterus. Recommend nonurgent evaluation of the uterus and adnexa. 4. Normal appendix. 5. No GI tract obstruction. 6. Prior cholecystectomy. 7. Asymmetric RIGHT sacroiliitis. This can be seen with prior infection, psoriatic arthritis or other forms of arthritis. Notified HETAL Mehta at 08/11/2025 2:48 PM. Laboratory Results WBC 6.12 10^3/uL (3.29-11.43) 08/11/25 12:55 RBC 4.34 10^6/uL (3.85-5.65) 08/11/25 12:55 Hgb 13.20 g/dL (11.27-16.99) 08/11/25 12:55 Hct 39.7 % (36-47) 08/11/25 12:55 MCV 91.5 fl (85-98) 08/11/25 12:55 MCH 30.4 pg (27-33) 08/11/25 12:55 MCHC 33.2 g/dL (30-55) 08/11/25 12:55 RDW 13.1 % (12.1-15.1) 08/11/25 12:55 Plt Count 267 10^3/cmm (157-399) 08/11/25 12:55 MPV 9.7 fL (7.4-10.4) 08/11/25 12:55 Neut % (Auto) 70.8 % 08/11/25 12:55 Lymph % (Auto) 22.2 % 08/11/25 12:55 [place] % (Auto) 4.2 % 08/11/25 12:55 Eos % (Auto) 2.0 % 08/11/25 12:55 Baso % (Auto) 0.5 % 08/11/25 12:55 Neut # (Auto) 4.33 10^3/uL (1.8-7.7) 08/11/25 12:55 Lymph # (Auto) 1.4 10^3/uL (0.8-4.8) 08/11/25 12:55 [place] # (Auto) 0.3 10^3/uL (0.2-0.9) 08/11/25 12:55 Eos # (Auto) 0.1 10^3/uL (0.0-0.8) 08/11/25 12:55 Baso # (Auto) 0.0 10^3/uL (0.0-0.1) 08/11/25 12:55 Nucleated RBC % (auto) 0 % 08/11/25 12:55 Nucleated RBCs # 0.0 /100WBC 08/11/25 12:55 Sodium 138 mmol/L (136-145) 08/11/25 12:55 Potassium 3.9 mmol/L (3.5-5.1) 08/11/25 12:55 Chloride 102 mmol/L (98-107) 08/11/25 12:55 Carbon Dioxide 25 mmol/L (22-29) 08/11/25 12:55 Anion Gap 14.9 (5-19) 08/11/25 12:55 BUN 8 mg/dL (6-20) 08/11/25 12:55 Creatinine 0.6 mg/dL (0.5-0.9) 08/11/25 12:55 GFR Calculation 107.6 mL/min (90-130) 08/11/25 12:55 Glucose 104 mg/dL (65-115) 08/11/25 12:55 Calculated Osmolality 285 mOsm/kg (285-295) 08/11/25 12:55 Calcium 8.5 mg/dL (8.5-10.5) 08/11/25 12:55 Total Bilirubin 0.3 mg/dL (0.15-1.2) 08/11/25 12:55 AST 17 U/L (0-32) 08/11/25 12:55 ALT 10 U/L (0-33) 08/11/25 12:55 Alkaline Phosphatase 66 U/L (35-105) 08/11/25 12:55 Total Protein 6.5 g/dL (6.6-8.7) L 08/11/25 12:55 Albumin 4.0 g/dL (3.5-5.2) 08/11/25 12:55 Globulin 2.5 g/dL (1.3-4.6) 08/11/25 12:55 Lipase 14 U/L (13-60) 08/11/25 12:55 HCG, Qual Negative (Negative) 08/11/25 12:55 Urine Color Yellow (Yellow) 08/11/25 13:50 Urine Appearance Turbid (CLEAR) A 08/11/25 13:50 Urine pH 7.0 (5-7) 08/11/25 13:50 Ur Specific [place] 1.015 (1.005-1.030) 08/11/25 13:50 Urine Protein Negative (Negative) 08/11/25 13:50 Urine Glucose (UA) Negative (Normal) 08/11/25 13:50 Urine Ketones Negative (Negative) 08/11/25 13:50 Urine Blood Negative (Negative) 08/11/25 13:50 Urine Nitrate Positive (Negative) A 08/11/25 13:50 Urine Bilirubin Negative (Negative) 08/11/25 13:50 Urine Urobilinogen 1.0 mg/dL (Negative) 08/11/25 13:50 Ur Leukocyte Esterase 3+ (Negative) A 08/11/25 13:50 Urine RBC 0-2 /hpf (0-2) 08/11/25 13:50 Urine WBC 51-100 /hpf (0-5) H 08/11/25 13:50 Ur Squamous Epith Cells 21-50 /hpf (0-5) H 08/11/25 13:50 Amorphous Sediment Not Reportable 08/11/25 13:50 Urine Bacteria 4+ /hpf (NONE) H 08/11/25 13:50 Hyaline Casts 2.05 /lpf 08/11/25 13:50 All radiology interpretation(s) finalized by discharge Discharge Plan Discharge Patient Disposition: Home Clinical Impression: Emphysematous cystitis Condition: Stable Prescriptions: New ciprofloxacin HCl [Cipro] 500 mg tablet 500 mg PO Q12H Qty: 14 0RF No Action omeprazole magnesium [Prilosec OTC] 20 mg tablet,delayed release (DR/EC) 20 mg PO BID Qty: 60 0RF tamsulosin 0.4 mg capsule 0.4 mg PO DAILY 7 Days Qty: 7 0RF sulfamethoxazole-trimethoprim [Bactrim DS] 800-160 mg tablet 1 tab PO BID 5 Days Qty: 10 0RF Discharge Orders: Discharge ED (Routine); Ordered 08/11/25 Ordered By: Bing Gurrola Patient Instructions: Patient Portal & Deandre Instructions Activity Restrictions/Additional Instructions: As we discussed, you need to fill your antibiotics immediately. Case management should contact you next week to help set you up with your follow-up appointment with primary care. You need to return the emergency department for onset of fevers greater than 100.4, repetitive episodes of vomiting, severe flank pain, generally feeling worse or unwell, or any other concerns you may have. Print Language: Citizen Of [place] Coding Level of Care Code ED Printer'S Assistant for Talg Fwhenry
[2025-08-11 13:59] LABS: Glucose Urine UA Negative (Normal); Nitrate Urine Positive (Negative); Specific Gravity, Urine 1.015 (1.005-1.030)
[2025-08-11 14:01] LABS: Add Urine Microscopic? YES
[2025-08-11 14:16] LABS: UA Slide Review UA Slide Review Perf
[2025-08-11] MEDS: ondansetron 2 mg/ML SDV 2 mL 4 MG IVP (14:37)
[2025-08-11] MEDS: cefTRIAXone 1,000 MG in water for injection-sterile 2.1 ML 1 MG IM (16:00)
[2025-08-11 16:01] VITALS: BP 117/71; PULSE 87; O2SAT 99
--- NOTE | 2025-08-14 08:00 | DCPLANNER ---
messaged [facility] for er f/u
== END 2025-08-11 16:01 | disposition home or self-care (01) ==
PROVIDERS: Emergency Provider Physician Assistant
DX: N30.80 Other cystitis without hematuria (principal); Z72.0 Tobacco use
CPT/HCPCS: 74176; 80053; 81001; 83690; 84703; 85025; 96361; 96372; 96374; 99285; J0696; J2405; J7030